=== PATIENT | male | born 1985 | race Caucasian/White ===

== ENCOUNTER 2021-01-27 00:38 | Emergency (ER) | payer BC ==
[~2021-01-27] VITALS: Ht 177.8 cm; Wt 78.8 kg
[2021-01-27 00:50] VITALS: BP 142/84
== END 2021-01-27 01:43 | disposition home or self-care (01) ==
LOC: ER 00:39
DX: R51.9 Headache, unspecified (principal); Z20.822 Contact with and (suspected) exposure to COVID-19; R11.2 Nausea with vomiting, unspecified
CPT/HCPCS: 36415; 99283; U0003; U0005